=== PATIENT | female | born 1960 | race Caucasian/White ===

== ENCOUNTER → 2020-01-17 08:40 | Outpatient (BNVA) | payer OTHER, SELFPAY | PROVIDERS: PCP Internal Medicine; Visit Provider Nurse Practitioner | DX: Z76.89 Persons encountering health services in other specified circumstances (principal) ==

== ENCOUNTER 2020-02-11 07:04 | Outpatient (REF) | payer OTHER, SELFPAY ==
[2020-02-11 08:11] LABS: COVID-19 Test Negative (Negative)
== END 2020-02-11 07:05 | disposition home or self-care (01) ==
LOC: HO.EMPCOV 07:04
PROVIDERS: Visit Provider Internal Medicine
DX: Z20.828 Contact with and (suspected) exposure to other viral communicable diseases (principal)
CPT/HCPCS: 87635; C9803

== ENCOUNTER → 2020-02-14 09:01 | Outpatient (BNVA) | payer OTHER, SELFPAY | PROVIDERS: PCP Internal Medicine; Visit Provider Nurse Practitioner | DX: Z76.89 Persons encountering health services in other specified circumstances (principal) ==

== ENCOUNTER 2020-02-23 10:42 | Outpatient (REF) | payer OTHER, SELFPAY ==
[2020-02-23 11:02] LABS: COVID-19 Test Negative (Negative); IDNOW Serial# 55D5AD1C
== END 2020-02-23 10:43 | disposition home or self-care (01) ==
LOC: HO.EMPCOV 10:42
PROVIDERS: Visit Provider Internal Medicine
DX: Z20.828 Contact with and (suspected) exposure to other viral communicable diseases (principal)
CPT/HCPCS: 87635; C9803

== ENCOUNTER 2020-03-19 15:56 | Outpatient (REF) | payer OTHER, SELFPAY ==
--- NOTE | 2020-03-19 | MM_ITS ---
EXAMINATION: MM SCREENING DIGITAL BREAST TOMOSYNTHESIS, BILATERAL CLINICAL INFORMATION: Screening. Asymptomatic. The lifetime risk of breast cancer based on the Tyrer-Cuzick Model is 8%. COMPARISON: Outside mammography: 10/05/2015, 07/06/2014, 06/02/2013 ([facility]) TECHNIQUE: Digital breast tomosynthesis is performed in both the craniocaudal and mediolateral oblique views along with computer-aided detection (CAD). Synthesized 2D images are generated from the tomosynthesis. FINDINGS: There are scattered areas of fibroglandular density (ACR BI-RADS breast composition Category b). There are no significant masses, abnormal calcifications, or other abnormalities. No significant changes from prior outside studies. MM/MM tomosynthesis screening BI IMPRESSION: No mammographic evidence of malignancy. ASSESSMENT: BI-RADS 1: Negative RECOMMENDATION: Routine annual mammography screening. This patient's information was entered into a reminder system with a target due date for their next mammogram.
== END 2020-03-19 15:57 | disposition home or self-care (01) ==
LOC: HO.MAMMO 15:56
PROVIDERS: Visit Provider Internal Medicine
DX: Z12.31 Encounter for screening mammogram for malignant neoplasm of breast (principal)
CPT/HCPCS: 77063; 77067

== ENCOUNTER 2020-04-26 07:45 | Outpatient (REF) | payer OTHER, SELFPAY ==
[2020-04-26 08:54] LABS: Cholesterol 225 mg/dL; HDL Cholesterol 72 mg/dL; LDL Cholesterol Calculated 138 mg/dl; Triglycerides 77 mg/dL
[2020-04-26 09:14] LABS: Vitamin D 25-OH Total 27.8 ng/mL (>30)
== END 2020-04-26 07:46 | disposition home or self-care (01) ==
LOC: HO.LDS 07:45
PROVIDERS: Visit Provider Internal Medicine
DX: Z00.00 Encounter for general adult medical examination without abnormal findings (principal); Z13.220 Encounter for screening for lipoid disorders
CPT/HCPCS: 36415; 80061; 82306

== ENCOUNTER 2020-05-02 14:25 | Outpatient (REF) | payer OTHER, SELFPAY ==
[2020-05-02 16:46] LABS: C Reactive Protein 0.09 mg/dL (< or = 0.50)
[2020-05-02 17:07] LABS: Erythrocyte Sedimentation Rate 5 MM/HR (0-20)
== END 2020-05-02 14:26 | disposition home or self-care (01) ==
LOC: HO.HMGCLDS 14:25
PROVIDERS: PCP Internal Medicine; Visit Provider Internal Medicine
DX: R51.9 Headache, unspecified (principal); E78.5 Hyperlipidemia, unspecified; I10 Essential (primary) hypertension
CPT/HCPCS: 36415; 85652; 86140

== ENCOUNTER 2025-02-19 11:22 | Emergency (ER) | payer OTHER, SELFPAY ==
--- NOTE | ~2025-02-19 | XR_ITS ---
CLINICAL HISTORY: palpitations Chest Radiographs, 2 views Comparison: None available Findings: No cardiomegaly. Normal mediastinal contours. No pneumothorax. Opacity in the posterior costophrenic angle. No pleural effusion. No acute findings in the upper abdomen. No acute fracture. Impression: Opacity in the posterior costophrenic angle could be infectious/inflammatory, atelectasis and/or scarring. This document has been electronically signed by: Gia Delgado MD on 02/19/2025 13:11:11
--- NOTE | 2025-02-19 11:27 | ECG_ITS ---
Test Reason : papl Blood Pressure : */* mmHG Vent. Rate : 71 BPM Atrial Rate : 71 BPM P-R Int : 160 ms QRS Dur : 84 ms QT Int : 394 ms P-R-T Axes : 53 65 45 degrees QTcB Int : 428 ms Normal sinus rhythm Nonspecific ST abnormality Abnormal ECG No previous ECGs available Referred By: Ciarra Avila Electronically Signed By: JYOTSNA ANDRADE
[2025-02-19 11:43] VITALS: BP 203/94; PULSE 62; RESP 20; TEMP 36.7; O2SAT 97; BMI 28.9
--- NOTE | 2025-02-19 11:45 | ED_ITS ---
HPI - General Adult General Chief complaint: Arrhythmia/Palpitations Stated complaint: Heart Palp EKG and BP Time Seen by Provider: 02/19/25 15:49 History of Present Illness HPI narrative: Author / Clinician: Saurav Rice MD Chief Complaint Palpitations for 1 week History of Present Illness Pt presents after evaluation at an outside urgent care earlier today for persistent palpitations that began approximately one week ago. She describes the sensation as an irregular, ?skipping? heartbeat that is present most of the day and particularly prominent at night, awakening her from sleep. She denies a rapid rate but notes marked irregularity. During grocery shopping yesterday she noticed mild exertional fatigue but no true dyspnea. She denies chest pain, fever, cough, or recent viral illness. She reports transient mild morning nasal congestion attributed to dry heat. She notes palpitations are frequent at night and also occur when swimming. Additional symptoms/concerns: - Recurrent right temporal headache localized to one spot, present most mornings for ~6 months; occurred 3 consecutive times this week. Previously evaluated by PCP/dentist who suspected TMJ; pain does not worsen with chewing. No visual changes. Patient purchased a mouth guard before and used it one night, but did not find it helpful. - No prior history of cardiac disease other than a remote episode of ?broken- heart syndrome? (Takotsubo cardiomyopathy) ~1.5 yrs ago. - Home medications: losartan. Previously trialed propranolol, discontinued by PCP. Urgent-care work-up today included normal basic labs (thyroid, electrolytes, Mg), ECG without arrhythmia, and CXR that the radiologist noted as ?possible abnormality? but not consistent with pneumonia; pt clinically without evidence of pneumonia. In the ED, telemetry captured premature beats coinciding with the patient?s symptoms. No sustained arrhythmia observed. --- Review of Systems Constitutional: Denies fever. Cardiovascular: Palpitations as described; denies chest pain. Respiratory: Denies shortness of breath or cough. ENT: Mild morning nasal congestion. Neurologic: Recurrent right-temporal headaches for ~6 months. GI / / MSK / Skin / Endocrine: Not discussed. Psych: Acknowledges stress related to symptoms. --- Physical Examination Vital Signs: Measure Value ------- ----- Physical Exam: Gen: Alert, awake, well appearing, well hydrated. Head: Atraumatic. Eyes: Anicteric, normal conjunctiva. ENT: Moist mucosa, no pallor. Neck: Supple. Skin: Warm, well perfused. Respiratory: Breathing comfortably, no distress. Clear to auscultation bilaterally. Cardiovascular: Regular rate and rhythm on auscultation; telemetry shows occasional premature beats corresponding with patient?s symptoms. No murmurs or rubs. Abdominal: Soft, non-tender, no distension. Neuro: Alert; grossly non-focal. Psych: Calm, cooperative. --- Medical Decision Making Preliminary Differential: - Frequent premature atrial/ventricular contractions (symptomatic) - Other paroxysmal arrhythmia ? low likelihood based on current monitoring - Secondary causes (electrolyte imbalance, stimulant/caffeine, stress) ED evaluation shows normal labs (CBC, CMP, TSH, magnesium), ECG without sustained arrhythmia, and bedside telemetry capturing premature beats. CXR reviewed ? no clinical or radiographic evidence of pneumonia despite initial radiology comment. Potassium borderline; supplementation provided to optimize level > 4 mEq/L for arrhythmia suppression. This is a patient with symptomatic premature beats and normal initial cardiac work-up. --- Plan: Initial Plan - Initiate low-dose beta lillie (metoprolol) for symptomatic palpitations; first dose given in ED. - Oral potassium supplementation today. - Counseled on reduction of caffeine intake, adequate hydration, and stress management strategies. - Continue losartan at home. Independent Data Analysis/Interpretation: - Imaging: Independently reviewed CXR ? no infiltrate, no acute findings concerning for pneumonia. - ECG: Sinus rhythm normal intervals and axis. Rate 71 QTC 428 no ischemic changes Rhythm strip shows: Independent interpretation shows normal sinus rhythm with occasional premature beats; no ischemic changes. - POCUS: if performed independently see separate documentation Additional Complexity: - Social Determinants of health: [ ] - Consults: Cardiology follow-up arranged - Independent review of External records available: Reviewed urgent-care records including labs, ECG, and radiology report Risk: - Moderate: Acute with Systemic Symptoms --- ED Course, Updates [ ] Patient monitored on telemetry; premature beats observed correlating with reported palpitations. First dose metoprolol 25 mg PO administered; no adverse reaction. 40 mEq oral KCl given. Bedside cardiac ultrasound pending. Disposition [ ] Discharged home in stable condition. Critical Care: [N/A] Related Data Previous Rx's ?Medication ?Instructions ?Recorded dicyclomine 20 mg tablet 20 mg PO QID 30 days #120 ta bs 01/17/20 propranolol 10 mg tablet 10 mg PO DAILY #90 tabs 0 06/14 sertraline 25 mg tablet 25 mg PO DAILY #90 tabs 09/25 03/16 metoprolol tartrate 25 mg tablet 12.5 mg (1/2 x 25 mg) PO BID 30 02/19/25 days #30 tabs Allergies Allergy/AdvReac Type Severity Reaction Status Date / Time No Known Allergies (No Known Allergy Verified 02/19/25 11:48 Allergies*) COUNT INCLUDES THE [facility] Past Medical History Medical History (Updated 02/20/25 @ 00:00 by Tyson Fletcher) Annual physical exam Enlarged thyroid Knee pain Foot pain, right Hyperlipidemia Headache HTN (hypertension) Anxiety Surgical History (Updated 01/17/20 @ 08:47 by Yuliana Smith Jolie) History of esophagogastroduodenoscopy (EGD) Hx of section Hx of colonoscopy Hx of appendectomy History of cholecystectomy Family History Family History Family/Other No known problems Social History Social History Housing: House Alcohol intake: current Alcohol intake frequency: does not drink Patient Tobacco Use Status: Never used Tobacco Smoked in Last 30 Days: No Advance Directives: No Advance Directives Information Provided: Yes Do you have a plan to hurt others: No Plan Patient : No Current occupational status: employed Physical Exam ED Vital Signs: Vital Signs - 24 hr 02/19/25 11:43 02/19/25 15:38 02/19/25 15:58 Temperature 98.1 F 98.4 F Pulse Rate 62 66 68 Respiratory Rate 20 18 Blood Pressure 203/94 H 175/83 H 151/67 H Pulse Oximetry 97 97 Oxygen Delivery Method Room Air Room Air 02/19/25 16:54 Temperature 98.1 F Pulse Rate 68 Respiratory Rate 16 Blood Pressure 151/67 H Pulse Oximetry Oxygen Delivery Method BMI result Body Mass Index 28.9 Course Course Course Narrative: Rapid medical examination performed in triage by Ciarra Avila PA-C: Patient is a 64 year old female presenting to the emergency department with palpitations and feeling generally unwell. Detailed physical exam and review of systems are deferred to the vest finisher. EKG, labs, imaging, swabs ordered. Patient placed back in the waiting room pending room availability and results. Medications Administered Discontinued Medications Generic Name Dose Route Start Last Admin Trade Name Elq PRN Reason Stop Dose Admin Metoprolol Tartrate 12.5 mg 02/19/25 16:31 02/19/25 16:48 Metoprolol Tartrate 12.5 Mg Halftab PO 02/19/25 16:32 12.5 mg ONCE ONE Administration Protocol Potassium Chloride 40 meq 02/19/25 16:32 02/19/25 16:46 Potassium Chloride Packet 20 Meq Packet PO 02/19/25 16:33 40 meq ONCE ONE Administration Medical Decision Making Lab Data 02/19/25 12:19 02/19/25 12:19 Labs: Lab Results 02/19/25 02/19/25 02/19/25 Range/Units 12:14 12:19 15:43 WBC 7.6 (4.8-10.8) X10*3/uL RBC 5.23 (4.20-5.50) X10*6/uL Hgb 15.0 (12.0-16.0) g/dl Hct 45.8 (37.0-47.0) % MCV 87.6 (80.0-98.0) fL MCH 28.7 (27.0-33.0) pg MCHC 32.8 (31.0-35.0) g/dl RDW 13.2 (11.0-16.0) % Plt Count 251 (160-400) X10*3/uL MPV 9.6 (9.4-12.3) fL Immature Gran % (Auto) 0.3 (0.0-0.4) % Neut % (Auto) 72.6 (45-73) % Lymph % (Auto) 16.3 L (20-40) % Johnston % (Auto) 8.0 (2-11) % Eos % (Auto) 2.4 (0-4) % Baso % (Auto) 0.4 (0-2) % Lymph # (Auto) 1.2 (1.2-4.9) X10*3/uL Johnston # (Auto) 0.6 (0.1-1.2) X10*3/uL Eos # (Auto) 0.2 (0.0-0.4) X10*3/uL Baso # (Auto) 0.0 (0.0-0.2) X10*3/uL Abs Immat Gran (auto) 0.02 (0.00-0.03) X10*3/uL Absolute Neuts (auto) 5.5 (2.0-8.3) x10*3/uL Absolute Nucleated RBC 0.000 (0.0-0.012) X10*3/uL Nucleated RBC % (auto) 0.0 (0.0-0.2) /100WBC Sodium 143 (135-145) mmol/L Potassium 3.7 (3.3-5.1) mmol/L Chloride 106 (96-108) mmol/L Carbon Dioxide 28 (22-29) mmol/L Anion Gap 13 (12-20) BUN 10 (9-16) mg/dL Creatinine 0.70 (0.5-1.4) mg/dL Estim Creat Clear Calc 84.2 Estimated GFR > 60 Random Glucose 100 (60-115) mg/dL Calcium 9.3 (8.4-10.2) mg/dL Magnesium 2.3 (1.6-2.6) mg/dL Total Bilirubin 0.6 (0.0-1.0) mg/dL AST 25 (5-31) U/L ALT 22 (0-31) U/L Alkaline Phosphatase 99 (39-117) U/L Troponin I High Sens 2.9 3.4 (<3.5-17.0) ng/L NT-Pro-B Natriuret Pep 177.3 (<300) pg/mL Total Protein 7.6 (6.5-8.0) g/dL Albumin 4.6 (3.5-5.0) g/dL TSH 1.13 (0.32-4.0) uIU/mL Influenza Type A (PCR) NEGATIVE (Negative) Influenza Type B (PCR) NEGATIVE (Negative) RSV RNA Qual (PCR) NEGATIVE (Negative) SARS-CoV-2 RNA (RT-PCR) NEGATIVE (Negative) Discharge Plan Discharge Clinical Impression: Heart palpitations, Premature beat Patient Disposition: Home, Self-Care Instructions: Heart Palpitations (ED) Prescriptions: New metoprolol tartrate 25 mg tablet 12.5 mg PO BID 30 Days Qty: 30 0RF No Action propranolol 10 mg tablet 10 mg PO DAILY Qty: 90 3RF sertraline 25 mg tablet 25 mg PO DAILY Qty: 90 3RF dicyclomine 20 mg tablet 20 mg PO QID 30 Days Qty: 120 3RF Referrals: [facility] [Provider Group] Interventions: ED Discharge Assessment Last Done: 02/19/25 16:54 Discharge Date/Time: 02/19/25 16:54 Print Language: Mohawk
[2025-02-19 12:24] LABS: MANUAL DIFF FLAG NO
[2025-02-19 12:26] LABS: Hematocrit 45.8 % (37.0-47.0); Hemoglobin 15.0 g/dl (12.0-16.0); Imm Gran Abs Auto 0.02 X10*3/uL (0.00-0.03); Imm Gran Pct Auto 0.3 % (0.0-0.4); Lymphocytes Absolute Auto 1.2 X10*3/uL (1.2-4.9); Mean Corpuscular HGB Conc 32.8 g/dl (31.0-35.0); Mean Corpuscular Hemoglobin 28.7 pg (27.0-33.0); Mean Corpuscular Volume 87.6 fL (80.0-98.0); NRBC Abs Auto 0.000 X10*3/uL (0.0-0.012); NRBC Pct Auto 0.0 /100WBC (0.0-0.2); Platelet Count 251 X10*3/uL (160-400); Red Blood Count 5.23 X10*6/uL (4.20-5.50); White Blood Count 7.6 X10*3/uL (4.8-10.8)
[2025-02-19 12:56] LABS: Alanine Aminotransferase 22 U/L (0-31); Albumin Level 4.6 g/dL (3.5-5.0); Alkaline Phosphatase 99 U/L (39-117); Anion Gap 13 (12-20); Aspartate Amino Transferase 25 U/L (5-31); Blood Urea Nitrogen 10 mg/dL (9-16); Calcium 9.3 mg/dL (8.4-10.2); Carbon Dioxide 28 mmol/L (22-29); Chloride 106 mmol/L (96-108); Creatinine Clr Calc Pharmacy 84.2; Estimated Glomerular Filt Rate > 60; Magnesium 2.3 mg/dL (1.6-2.6); Potassium 3.7 mmol/L (3.3-5.1); Sodium 143 mmol/L (135-145); Total Protein 7.6 g/dL (6.5-8.0)
[2025-02-19 13:03] LABS: Resp Syncy Virus RNA Qual PCR NEGATIVE (Negative); SARS COV2 PCR INHOUSE NEGATIVE (Negative)
[2025-02-19 13:04] LABS: NT Pro B Type Natriuretic Pept 177.3 pg/mL (<300); Troponin-I High Sensitivity 2.9 ng/L (<3.5-17.0)
[2025-02-19 15:38] VITALS: BP 175/83; PULSE 66; RESP 18; TEMP 36.9; O2SAT 97
[2025-02-19 15:55] VITALS: PULSE 68
--- OUTSIDE RECORDS SUMMARY | 2025-02-19 15:56 | XMS_ITS | Patient Health Record ---
Author Organization [facility] [address] Address [address] [place] [address] Care Team Providers Care Home Care Giver Name Role Phone Sneha Donaldson MD Primary Care Provider Unavaila Concepcion Sullivan Unavailable [phone] Allergies No Known Allergies Reason For Referral No Information Medications Medication SIG (Take, Route, Frequency, Duration) Notes Start Date End Date Status FLUoxetine HCl Not-T aking Propranolol HCl Acti ve Sertraline HCl 25 MG 1 tablet Orally Onc e a day; Duration: 30 day(s) Active Social History Tobacco Use: Social History Observation Description Date Details (start date - stop date) Never Smoker NA - NA Tobacco Use/Smoking Question Answer Notes Are you a: nonsmoker Alcohol Screen Question Answer Notes Did you have a drink containing alcohol in the p ast year? Yes Points 0 Interpretation Negative Tobacco use other than smoking: Question Answer Notes Are you an other tobacco user? No Problems Problem Type SNOMED Code ICD Code Onset Dates Problem Status W/U Status Risk Notes Problem Acquired hammer toe of right foot (7389312128269373) Other hammer toe(s) (acquired), right foot (M20.41) Active confirmed Problem Acquired hallux valgus (15182367) Hallux valgus (acquired), left foot (M20.12) Active confirmed Problem Acquired hammer toe of left foot (9300443711549565) Other hammer toe(s) (acquired), left foot (M20.42) Active confirmed Problem Acquired hallux valgus (57518514) Hallux valgus (acquired), right foot (M20.11) Active confirmed Problem Metatarsalgia of left foot (218791390708327) Metatarsalgi a, left foot (M77.42) Active confirmed Problem 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, 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 Plan Of Treatment Pending Test Test Name Order Date [id number] Plate 05/14/2020 Insurance Providers Payer Name Payer Address Payer Phone Subscriber Number Group Number Insured Name Patient Relationship to Insured Coverage Start Date Coverage End Date Blue Benefits [address] [address] [place] [phone] [id number] Kavita Posada Self - patient is the insured Medical (General) History Medical History History ICD Code Anxiety High blood pressure Chicken pox Anemia Back,Hip,and Knee pain Cancer Gall bladder problems Headaches/Migraines Reflux ( GERD) Surgical History Surgery Date(Month/Year) appendectomy 1981 gall bladder 1999 bunionectomy 1986 1984,1988
[2025-02-19 15:58] VITALS: BP 151/67; PULSE 68
[2025-02-19 16:07] LABS: Troponin-I High Sensitivity 3.4 ng/L (<3.5-17.0)
[2025-02-19] MEDS: Potassium Chloride Packet 20 MEQ PACKET 40 MEQ PO (16:46)
[2025-02-19] MEDS: Metoprolol Tartrate 12.5 MG HALFTAB PO (16:48)
[2025-02-19 16:54] VITALS: BP 151/67; PULSE 68; RESP 16; TEMP 36.7
== END 2025-02-19 16:54 | disposition home or self-care (01) ==
PROVIDERS: Physician Assistant Medical; Emergency Provider Emergency Medicine; PCP Family Medicine
DX: R00.2 Palpitations (principal); R94.31 Abnormal electrocardiogram [ECG] [EKG]; Z03.818 Encounter for observation for suspected exposure to other biological agents ruled out; I10 Essential (primary) hypertension
CPT/HCPCS: 36415; 71046; 80053; 83735; 83880; 84443; 84484; 85025; 87637; 93005; 99283; 99285

== ENCOUNTER → 2025-02-19 11:27 | Outpatient (BNV) | payer OTHER, SELFPAY | PROVIDERS: Emergency Provider Emergency Medicine; PCP Family Medicine; Visit Provider Internal Medicine | DX: R94.31 Abnormal electrocardiogram [ECG] [EKG] (principal); R00.2 Palpitations | CPT/HCPCS: 93010 ==

== ENCOUNTER → 2025-02-19 11:46 | Outpatient (BNV) | payer OTHER, SELFPAY | PROVIDERS: PCP Family Medicine; Visit Provider Radiology Diagnostic Radiology | DX: R91.8 Other nonspecific abnormal finding of lung field (principal) | CPT/HCPCS: 71046 ==